=== PATIENT | female | born 1990 | race Two or more races ===

== ENCOUNTER 2022-07-11 05:24 | Emergency (ER) | payer OTHER ==
[~2022-07-11] VITALS: Ht 154.9 cm; Wt 89.5 kg
[2022-07-11] MEDS ORDERED: ALBUTEROL SULF 2.5 MG/0.5ML(0.5%) NEB SOLN NEB ONE (06:00)
[2022-07-11] MEDS ORDERED: DexAMETHasone SOD PHOS 10MG/1ML VIAL INJ IM ONE (06:00)
[2022-07-11] MEDS ORDERED: IPRATROPIUM BROM 0.5 MG/2.5ML INH SOL NEB ONE (06:00)
[2022-07-11] MEDS ORDERED: METH4PAK PO (06:47)
[2022-07-11] MEDS ORDERED: ALBUAER3 IN (06:47)
[2022-07-11 07:28] VITALS: BP 125/75
== END 2022-07-11 07:30 | disposition home or self-care (01) ==
LOC: ER 05:29
DX: J45.909 Unspecified asthma, uncomplicated (principal); Z20.822 Contact with and (suspected) exposure to COVID-19
CPT/HCPCS: 36415; 71046; 87426; 87804; 94640; 96372; 99284; J1100; J7644